=== PATIENT | female | born 1960 | race Caucasian/White ===

== ENCOUNTER 2021-06-21 10:41 | Observation (INO) | payer MEDICARE, MEDICAID ==
[~2021-06-21] VITALS: Ht 172.7 cm; Wt 118.0 kg
--- NOTE | 2021-06-21 11:20 | NUR ---
MEDICATED WITH MORPHINE 4MG IVP FOR C/O 01/12 HEADACHE.
[2021-06-21 11:30] LABS: GFR > 60 ML/MIN (>=60 (CALC)); GFR FOR AFR.AMER. > 60 ML/MIN (>=60 (CALC))
[2021-06-21 11:34] LABS: HEMATOCRIT 47.4 % (37.0-47.0); HEMOGLOBIN 15.6 g/dl (12.0-16.0); IMMATURE GRANULOCYTES 0.4 % (0.0-5.0); MEAN CELL VOLUME 80.3 fL CALC (80.0-100.0); MEAN CORPUSCULAR HGB 26.4 pG CALC (26.0-32.0); MEAN CORPUSCULAR HGB CONC 32.9 g/dL CAL (32.0-36.0); NEUT# 8.19 thou/uL (2.00-7.15); RED BLOOD COUNT 5.9 mill/uL (4.20-5.60); RED CELL DISTRI WIDTH 13.5 % (11.5-15.5)
[2021-06-21 11:51] LABS: ALBUMIN 4.3 g/dL (3.2-5.0); ALKALINE PHOSPHATASE 97 u/l (38-126); ANION GAP 16 (6-22 (CALC)); BILIRUBIN, TOTAL 0.9 mg/dL (0.0-1.4); BUN 16 mg/dL (8-23); BUN/CREATININE RATIO 21 (12-20 (CALC)); CARBON DIOXIDE 28 mmol/l (22-30); CHLORIDE 97 mmol/l (95-108); CREATININE 0.7 mg/dL (0.5-1.0); GFR > 60 ML/MIN (>=60 (CALC)); GFR FOR AFR.AMER. > 60 ML/MIN (>=60 (CALC)); POTASSIUM 4.6 mmol/l (3.5-5.1); SGOT/AST 21 u/l (9-36); SODIUM 136 mmol/l (137-146); TOTAL PROTEIN 7.5 g/dL (6.3-8.2)
--- NOTE | 2021-06-21 13:05 | NUR ---
MD AT BEDSIDE TO DISCUSS RESULTS AND POC
[2021-06-21] MEDS ORDERED: TRAZODONE100 MG PO (14:30)
[2021-06-21] MEDS ORDERED: ZOLPIDEM10 MG PO (14:30)
[2021-06-21] MEDS ORDERED: PAXIL40 MG PO (14:32)
[2021-06-21] MEDS ORDERED: METFORMIN500 M2 PO (14:32)
[2021-06-21] MEDS ORDERED: OMEPRAZOLE DR20 MG PO (14:32)
[2021-06-21] MEDS ORDERED: ZESTRIL10 M1 PO (14:33)
[2021-06-21] MEDS ORDERED: HYDROXYZINE HYD25 MG PO (14:34)
[2021-06-21] MEDS ORDERED: HYDROCHLOROT12.5 MG PO (14:35)
[2021-06-21] MEDS ORDERED: GLIPIZIDE ER5 M1 PO (14:35)
[2021-06-21] MEDS ORDERED: COREG6.25 MG PO (14:36)
[2021-06-21] MEDS ORDERED: ELIQUIS5 MG PO (14:36)
[2021-06-21] MEDS ORDERED: CLOPIDOGREL75 MG PO (14:36)
[2021-06-21] MEDS ORDERED: ASPIRIN/ENTERIC81 MG PO (14:37)
[2021-06-21] MEDS ORDERED: LIPITOR20 M1 PO (14:37)
[2021-06-21] MEDS ORDERED: NORVASC5 M1 PO (14:38)
--- NOTE | 2021-06-21 14:45 | NUR ---
RESTING QUIETLY, RESPS EVEN AND UNLABORED ON ROOM AIR, VSS, MONITORS ATTACHED. VISITOR AT BEDSIDE.
--- NOTE | 2021-06-21 16:04 | NUR ---
REPORT CALLED TO BATSHEVA MCDOWELL
--- NOTE | 2021-06-21 16:15 | NUR ---
TO MED SURG VIA WHEELCHAIR, TELE MONITOR IN PLACE.
[2021-06-21 16:29] VITALS: BP 144/83
--- NOTE | 2021-06-21 16:30 | NUR ---
PT ARRIVED TO UNIT AT 1621 VIA WHEELCHAIR WITH ER STAFF; ALERT AND ORIENTED X 3. AMBULATED TO BED WITH STEADY, BUT SLOW GAIT. C/O SEVERE PAIN TO LOWER BACK AND HEADACHE. RESPIRATIONS EVEN AND UNLABORED ON ROOM AIR. VSS. ORIENTED TO ROOM AND CALL LIGHT SYSTEM. ASSESSMENT COMPLETED. TELEMETRY IN PLACE AND VERIFIED WITH ER PLANNER/SCHEDULER. IV SITE TO RAC APPEARS HEALTHY. PLAN OF CARE DISCUSSED; PT ENCOURAGED TO VERBALIZE CONCERNS; STATES UNDERSTANDING. SAFETY MEASURES IN PLACE; CALL LIGHT WITHIN REACH.
[2021-06-21 19:30] VITALS: BP 142/71
[2021-06-22 00:10] VITALS: BP 117/77
[2021-06-22 04:27] VITALS: BP 125/72
[2021-06-22 06:07] LABS: HEMATOCRIT 44.4 % (37.0-47.0); HEMOGLOBIN 14.5 g/dl (12.0-16.0); MEAN CORPUSCULAR HGB 26.5 pG CALC (26.0-32.0); MEAN CORPUSCULAR HGB CONC 32.7 g/dL CAL (32.0-36.0); RED BLOOD COUNT 5.48 mill/uL (4.20-5.60); RED CELL DISTRI WIDTH 13.5 % (11.5-15.5)
[2021-06-22 06:38] LABS: ANION GAP 11 (6-22 (CALC)); BUN 24 mg/dL (8-23); BUN/CREATININE RATIO 25 (12-20 (CALC)); CARBON DIOXIDE 30 mmol/l (22-30); CHLORIDE 97 mmol/l (95-108); CHOLESTEROL HDL RATIO 5.9 (<4.4 (CALC)); GFR 56 ML/MIN (>=60 (CALC)); GFR FOR AFR.AMER. > 60 ML/MIN (>=60 (CALC)); HDL CHOLESTEROL 30 mg/dL (>=40); MAGNESIUM 1.4 mg/dL (1.6-2.3); POTASSIUM 4.3 mmol/l (3.5-5.1); SODIUM 134 mmol/l (137-146); TOTAL CHOLESTEROL 176 mg/dl (0-199)
[2021-06-22 06:41] LABS: TOTAL TRIGLYCERIDES 462 mg/dl (30-149)
--- NOTE | 2021-06-22 08:25 | NUR ---
SHIFT CHANGE REPORT, PT AWAKE ALERT AND ORIENTED SITTING UP IN BED, DENIES DISCOMFORT, CALL CABRERA IN REACH AND BED LOCKED IN LOWEST POSITION.
[2021-06-22 09:40] VITALS: BP 143/72
[2021-06-22 11:08] VITALS: BP 133/73
--- NOTE | 2021-06-22 12:04 | NUR ---
SITTING UP AT BEDSIDE HAVING MEAL, MEDICAL TEAM ROUNDED AND DISCUSSED AND WROTE ORDERS AFTER INFORMING PT OF CHANGES, PT STATES UNDERSTANDING, STATES HER H/A HAS NOT BEING RELIEVED WITH TYLENOL, WILL CONTINUE TO MONITOR AND ADDRESS NEEDS. FAMILY MEMBER IN ROOM VISITING AT THIS TIME.
[2021-06-22] MEDS ORDERED: MECLIZINE25 MG PO (16:16)
[2021-06-22 16:54] VITALS: BP 133/73
--- NOTE | 2021-06-22 17:35 | NUR ---
Discharge instructions given. Patient verbalizes understanding of same. Discharged in good condition via Wheelchair to Home with family. All belongings sent with pt.
== END 2021-06-22 17:35 | disposition home or self-care (01) ==
LOC: ED 10:41 → ED-I 13:00 → ED 13:33 → MS2 13:34
PROVIDERS: Family Medicine; ADMIT Hospitalist; ATTEND Hospitalist
DX: R07.9 Chest pain, unspecified (principal); R42 Dizziness and giddiness; E83.42 Hypomagnesemia; I10 Essential (primary) hypertension; E11.9 Type 2 diabetes mellitus without complications; E78.5 Hyperlipidemia, unspecified; F41.9 Anxiety disorder, unspecified; F32.A Depression, unspecified; I25.2 Old myocardial infarction; Z86.73 Personal history of transient ischemic attack (TIA), and cerebral infarction without residual deficits; Z95.5 Presence of coronary angioplasty implant and graft; Z20.822 Contact with and (suspected) exposure to COVID-19
CPT/HCPCS: G0378; J1650; J3475; Q9967

== ENCOUNTER 2021-11-19 19:10 | Emergency (ER) | payer MEDICARE, MEDICAID ==
[~2021-11-19] VITALS: Ht 172.7 cm; Wt 120.0 kg
[~2021-11-19 19:10] MED LIST: ASPIRIN/ENTERIC81 MG PO; CLOPIDOGREL75 MG PO; COREG6.25 MG PO; ELIQUIS5 MG PO; GLIPIZIDE ER5 M1 PO; HYDROCHLOROT12.5 MG PO; HYDROXYZINE HYD25 MG PO; LIPITOR20 M1 PO; MECLIZINE25 MG PO; METFORMIN500 M2 PO; NORVASC5 M1 PO; OMEPRAZOLE DR20 MG PO; PAXIL40 MG PO; TRAZODONE100 MG PO; ZESTRIL10 M1 PO; ZOLPIDEM10 MG PO
[2021-11-19 19:46] VITALS: BP 185/83
[2021-11-19 20:01] VITALS: BP 159/67
[2021-11-19 21:31] VITALS: BP 140/62
[2021-11-19 22:06] VITALS: BP 140/62
[2021-11-20] MEDS ORDERED: HYDROCHLOROTH12.5 MG PO (00:50)
[2021-11-20] MEDS ORDERED: GLYBURIDE5 M1 PO (00:52)
[2021-11-20] MEDS ORDERED: CLOPIDOGREL75 MG PO (00:52)
[2021-11-20] MEDS ORDERED: GABAPENTIN100 MG PO (00:53)
[2021-11-20] MEDS ORDERED: FENOFIBRATE145 MG PO (00:54)
[2021-11-20] MEDS ORDERED: ROSUVASTATIN CA20 MG PO (00:54)
[2021-11-20] MEDS ORDERED: ROPINIROLE0.5 MG PO (00:55)
== END 2021-11-19 22:25 | disposition home or self-care (01) ==
LOC: ED 19:10
DX: U07.1 COVID-19 (principal); J40 Bronchitis, not specified as acute or chronic; I10 Essential (primary) hypertension; E11.9 Type 2 diabetes mellitus without complications; I25.2 Old myocardial infarction; Z86.73 Personal history of transient ischemic attack (TIA), and cerebral infarction without residual deficits; Z95.5 Presence of coronary angioplasty implant and graft; Z79.84 Long term (current) use of oral hypoglycemic drugs

== ENCOUNTER 2022-06-28 19:19 | Emergency (ER) | payer MEDICARE, MEDICAID ==
[~2022-06-28] VITALS: Ht 172.7 cm; Wt 117.0 kg
[~2022-06-28 19:19] MED LIST changes: +FENOFIBRATE145 MG PO; +GABAPENTIN100 MG PO; +GLYBURIDE5 M1 PO; +HYDROCHLOROTH12.5 MG PO; +ROPINIROLE0.5 MG PO; +ROSUVASTATIN CA20 MG PO
[2022-06-28 19:44] VITALS: BP 146/81
[2022-06-28 20:23] LABS: BASO% 0.5 % (0-3); EOS% 2.3 % (0-8); HEMATOCRIT 39.9 % (37.0-47.0); HEMOGLOBIN 13.5 g/dl (12.0-16.0); IMMATURE GRANULOCYTES 0.2 % (0.0-5.0); LYMPH% 30.8 % (15-41); MEAN CELL VOLUME 83.1 fL CALC (80.0-100.0); MEAN CORPUSCULAR HGB 28.1 pG CALC (26.0-32.0); MEAN CORPUSCULAR HGB CONC 33.8 g/dL CAL (32.0-36.0); MONO% 5.9 % (2-13); NEUT# 5.23 thou/uL (2.00-7.15); NEUT% 60.3 % (42-76); RED BLOOD COUNT 4.8 mill/uL (4.20-5.60); RED CELL DISTRI WIDTH 14.3 % (11.5-15.5)
[2022-06-28 20:34] LABS: ALBUMIN 4.6 g/dL (3.2-5.0); ALKALINE PHOSPHATASE 112 u/l (38-126); BUN 17 mg/dL (8-23); BUN/CREATININE RATIO 27 (12-20 (CALC)); CARBON DIOXIDE 28 mmol/l (22-30); CHLORIDE 104 mmol/l (95-108); CREATININE 0.6 mg/dL (0.5-1.0); GFR FOR AFR.AMER. > 60 ML/MIN (>=60 (CALC)); GFR OTHER RACES > 60 ML/MIN (>=60 (CALC)); POTASSIUM 3.9 mmol/l (3.5-5.1); SGOT/AST 27 u/l (9-36); TOTAL PROTEIN 7.2 g/dL (6.3-8.2)
[2022-06-28 20:35] LABS: ANION GAP 13 (6-22 (CALC)); BILIRUBIN, TOTAL 0.4 mg/dL (0.0-1.4); SODIUM 141 mmol/l (137-146)
[2022-06-28 20:45] LABS: ACT PARTIAL THROMBO TIME 26.6 SECONDS (20.0-32.5); PROTHROMBIN TIME 10.1 SECONDS (9.0-12.5)
[2022-06-28 21:02] LABS: D-DIMER 0.23 mg/L (0.19-0.60)
[2022-06-28] MEDS ORDERED: TORADOL PO (21:54)
== END 2022-06-28 22:19 | disposition home or self-care (01) ==
LOC: ED 19:19
PROVIDERS: Family Medicine
DX: R07.89 Other chest pain (principal); I10 Essential (primary) hypertension; E11.9 Type 2 diabetes mellitus without complications; I25.2 Old myocardial infarction; Z95.5 Presence of coronary angioplasty implant and graft; Z86.73 Personal history of transient ischemic attack (TIA), and cerebral infarction without residual deficits; Z79.84 Long term (current) use of oral hypoglycemic drugs